=== PATIENT | female | born 1995 | race Two or more races ===

== ENCOUNTER 2019-10-19 09:08 | Outpatient (CLI) | payer OTHER | END 2019-10-19 09:16 | disposition home or self-care (01) | LOC: SONOGRAMA 09:08 → MAMO-SONO 09:15 → SONOGRAMA 09:16 | DX: R10.2 Pelvic and perineal pain (principal) ==

== ENCOUNTER 2019-11-29 19:23 | Emergency (ER) | payer OTHER ==
[~2019-11-29] VITALS: Ht 160 cm; Wt 75.7 kg
== END 2019-11-29 21:58 | disposition home or self-care (01) ==
LOC: ER 19:23
DX: B34.9 Viral infection, unspecified (principal); K52.9 Noninfective gastroenteritis and colitis, unspecified; E86.0 Dehydration

== ENCOUNTER 2020-11-13 11:27 | Outpatient (CLI) | payer OTHER | END 2020-11-13 11:48 | disposition home or self-care (01) | LOC: RAD 11:27 | PROVIDERS: ATTEND Family Medicine | DX: N20.0 Calculus of kidney (principal); M54.5 Low back pain; M25.562 Pain in left knee ==

== ENCOUNTER 2021-01-08 14:08 | Outpatient (CLI) | payer OTHER | END 2021-01-08 14:22 | disposition home or self-care (01) | LOC: RAD 14:08 | PROVIDERS: ATTEND Family Medicine | DX: M54.6 Pain in thoracic spine (principal) ==

== ENCOUNTER 2021-06-02 18:10 | Emergency (ER) | payer OTHER ==
[~2021-06-02] VITALS: Ht 160 cm; Wt 69.4 kg
== END 2021-06-02 22:58 | disposition home or self-care (01) ==
LOC: ER 18:10
DX: S00.83XA Contusion of other part of head, initial encounter (principal); S10.83XA Contusion of other specified part of neck, initial encounter; V43.92XA Unspecified car occupant injured in collision with other type car in traffic accident, initial encounter; Y93.89 Activity, other specified; Y92.488 Other paved roadways as the place of occurrence of the external cause; Y99.8 Other external cause status

== ENCOUNTER 2022-11-14 19:32 | Emergency (ER) | payer OTHER ==
[~2022-11-14] VITALS: Ht 160 cm; Wt 79.4 kg
== END 2022-11-14 23:46 | disposition home or self-care (01) ==
LOC: ER 19:32
DX: B34.8 Other viral infections of unspecified site (principal); Z20.822 Contact with and (suspected) exposure to COVID-19; R51.9 Headache, unspecified; R11.2 Nausea with vomiting, unspecified

== ENCOUNTER 2023-09-26 11:46 | Emergency (ER) | payer OTHER ==
[~2023-09-26] VITALS: Ht 160 cm; Wt 78.5 kg
[2023-09-26 17:39] LABS: HEMATOCRIT 38.1 % (36.0-45.00); HEMOGLOBIN 12.5 g/dL (12.0-15.00); MEAN CELL VOLUME 85.8 fL (80.00-100.00); MEAN CORPUSCULAR HEMOGLOBIN 28.3 pg (27.00-32.0); MEAN CORPUSCULAR HGB CONC 32.9 g/dl (32.0-36.0); PLATELET COUNT 311 K/uL (150-450); RED BLOOD COUNT 4.44 M/uL (4.00-6.00); RED CELL DISTRIBUTION WIDTH 13.4 % (11.5-14.5)
[2023-09-26 18:02] LABS: ALBUMIN 3.8 gm/dL (3.4-5.0); BILIRUBIN TOTAL 0.18 mg/dL (0.3-1.2); CALCIUM 9.1 mg/dL (8.5-10.1); CREATININE SERUM 0.71 mg/dL (0.55-1.02); GFR 96.66; GLOBULINA 4.8 G/DL (2.4-3.5); POTASSIUM 3.61 mEq/L (3.5-5.1); TOTAL PROTEIN 8.6 gm/dL (6.4-8.2)
== END 2023-09-26 18:58 | disposition home or self-care (01) ==
LOC: ER 11:46
PROVIDERS: General Practice
DX: M94.0 Chondrocostal junction syndrome [Tietze] (principal)